=== PATIENT | female | born 1965 | race Two or more races ===

== ENCOUNTER 2016-08-10 11:28 | Emergency (ER) | payer BC ==
[2016-08-10 12:38] VITALS: RESP 18
[2016-08-10] MEDS ORDERED: ACETAMINOPHEN TAB 500 MG TAB PO STA (14:15)
[2016-08-10] MEDS ORDERED: DEXAMETHASONE 4 MG TAB PO STA (14:22)
[2016-08-10] MEDS ORDERED: LORazepam 1 MG TAB PO STA (14:23)
[2016-08-10 14:41] LABS: Basophils % (A) 0 %; CH 33.4; CHCM 33.3; Eosinophils # (A) 0.1 k/uL (0-0.7); Eosinophils % (A) 1 %; HCT 39.9 % (34.0-46.0); HDW 2.09; HGB 13.4 gm/dL (11.4-16.0); Luc # (Auto) 0.09; Luc % (Auto) 1; Lymphocytes # (A) 1.7 k/uL (1.0-4.8); Lymphocytes % (A) 22 %; MCH 33.8 pg (25.0-35.0); MCHC 33.5 g/dL (31.0-37.0); MCV 100.7 fL (80.0-100.0); Macrocytosis Slight; Mean Platelet Volume 7.1; Monocytes # (A) 0.3 k/uL (0-1.0); Monocytes % (A) 4 %; Neutrophils # (A) 5.4 k/uL (1.3-7.7); Neutrophils % (A) 72 %; RBC 3.96 m/uL (3.80-5.40); RDW 14.1 % (11.5-15.5); WBC 7.5 k/uL (3.8-10.6); WBC (Perox) 7.73
[2016-08-10 14:49] LABS: ALT 36 U/L (9-52); AST 28 U/L (14-36); Alkaline Phosphatase 78 U/L (38-126); Anion Gap 10 mmol/L; Blood Urea Nitrogen 19 mg/dL (7-17); Calcium 9.8 mg/dL (8.4-10.2); Carbon Dioxide 27 mmol/L (22-30); Chloride 106 mmol/L (98-107); Glucose 95 mg/dL (74-99); Non-African American GFR(MDRD) >60 (>60 ml/min/1.73 sqM); Potassium 4.2 mmol/L (3.5-5.1); Sodium 143 mmol/L (137-145); Total Bilirubin 0.5 mg/dL (0.2-1.3); Total Protein 7.3 g/dL (6.3-8.2)
--- NOTE | 2016-08-10 15:05 | CT ---
EXAMINATION TYPE: CT brain wo con DATE OF EXAM: 08/10/2016 2:58 PM COMPARISON: Previous study dated 12/09/2013. HISTORY: Dizziness and Headache. CT DLP: 1054.2 mGycm Automated exposure control for dose reduction was used. FINDINGS: Central structures are midline. There is no evidence of hydrocephalus. No acute focal lesion, mass ef fect or midline shift is seen. I do not see evidence of intracranial blood. Visualized portions of the paranasal sinuses and mastoids are clear. No depressed skull fracture is s een. IMPRESSION: NORMAL CT SCAN OF THE BRAIN.
--- NOTE | 2016-08-10 15:09 | CT ---
EXAMINATION TYPE: CT sinus wo con DATE OF EXAM: 08/10/2016 2:58 PM COMPARISON: 08/30/2011 HISTORY: 51-year-old female with dizziness and Headache. CT DLP: 1054.2 mGycm Automated exposure control for dose reduction was used. TECHNIQUE: Noncontrast axial views of the paranasal sinuses were obtained. Coronal reconstructions pe rformed. FINDINGS: Scattered mild mucosal thickening left ethmoid air cells and floor of the left maxillary sinus. Remainder of the paranasal sinuses are well pneumatized. There is no air-fluid level. Reactive keisha- osteogenesis is not seen. There is no destruction of the osseous quick of the paranasal sinuses. The osteomeatal complexes are patent. Leftward nasal septal deviation. Brain is reported separately. Mastoid air cells and middle ear cavities are well pneumatized. Reformatted images confirm above findings. IMPRESSION: Mild chronic left ethmoid and left maxillary sinus disease and leftward nasal septal deviation.
--- NOTE | 2016-08-10 15:52 | ED ---
Headache HPI - General Chief Complaint: Headache Stated Complaint: POSS VERTIGO Time Seen by Provider: 08/10/16 14:05 Mode of arrival: ambulatory Limitations: no limitations - History of Present Illness Initial Comments: 51 years old female presents with a headache ongoing for the last 3 days, she has a few comorbidities and some risk factors she has some history of prior TMs TMJ for which she had a surgery and she has a chronic disc disease for which she had surgery and same time she is concerned she has a pain in the jaw she is requesting us to check her for heart disease. She been feeling dizzy for the last 3 days seen her family doctor and was started on some antibiotics that hasn 't helped she feels her head is heavy and she feels pressure denies any blurred vision any slurred speech denies any symptoms of TIA or CVA denies any neck stiffness she had a cervical spine surgery review of system is unremarkable otherwise - Related Data Home Medications Medication Instructions Recorded Confirmed clonazePAM [Clonazepam] 0.5 mg PO DAILY PRN 06/08/14 08/10/16 Cyanocobalamin [Vitamin B-12 1,000 mcg SQ QMONTH 06/13/14 08/10/16 Injection] Amoxicillin 500 mg PO DAILY 08/10/16 08/10/16 Atenolol [Tenormin] 25 mg PO DAILY 08/10/16 08/10/16 Cyclobenzaprine [Flexeril] 10 mg PO DAILY PRN 08/10/16 08/10/16 traMADol-ACETAMINOP 37.5-325MG 1 tab PO BID PRN 08/10/16 08/10/16 [Ultracet] Previous Rx's Medication Instructions Recorded Clarithromycin [Biaxin] 500 mg PO Q12HR #20 tablet 08/10/16 predniSONE 50 mg PO DAILY #5 tab 08/10/16 Allergies Allergy/AdvReac Type Severity Reaction Status Date / Time naproxen [From Naprosyn] Allergy Dyspnea Verified 08/10/16 14:46 Iodinated Contrast Media - AdvReac Headache Verified 08/10/16 14:46 Oral and and [Iodinated Contrast Media - Stomach IV Dye] Ache Review of Systems ROS Statement: Those systems with pertinent positive or pertinent negative responses have been documented in the HPI. ROS Other: All systems not noted in ROS Statement are negative. 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, LOW VIT B LEVELS, MIGRIANES, DIVERTICULITIS History of Any Multi-Drug Resistant Organisms: None Reported Past Surgical History: Back Surgery Additional Past Surgical History / Comment(s): Jaw surgery 5-2013, EYE SURGERY, MARKERS LEFT IN BREAST-MAMMOGRAMS SO FAR NEG Past Anesthesia/Blood Transfusion Reactions: No Reported Reaction Past Psychological History: Anxiety, Depression Additional Psychological History / Comment(s): PT IS A VERY PLEASANT 49 YEAR OLD THAT LIVES IN OWN HOME WITH . SHE CURRENTLY WORKD AT [employer]. PT HAS HAD TMD, DDD IN NECK THAT SHE RECEIVES INJECTIONS AT NEUROLOGIST OFFICE. Smoking Status: Current every day smoker Past Alcohol Use History: Occasional Additional Past Alcohol Use History / Comment(s): KSTARTED SMOKING AT AGE 13- SMOKES 1PPD , SMOKING CESSATION BOOKLET GIVEN TO PT.PT STATED DOES'NT DRINK MORE THAN 7 DRINKS PER WEEK. Past Drug Use History: None Reported - Past Family History Father Additional Family Medical History / Comment(s): CHIRROSIS OF THE LIVER- FROM COMPLICATIONS. Mother Family Medical History: Cancer, Diabetes Mellitus Additional Family Medical History / Comment(s): MOM IS 78 HAS HAD BREAST CA General Exam - General Exam Comments Initial Comments: General: The patient is awake and alert, in no distress, she is quite anxious Skin: Skin is warm and dry and no rashes or lesions are noted. NO Tenderness over the temporal areas both sides Eye: Pupils are equal, round and reactive to light, extra-ocular movements are intact; there is normal conjunctiva bilaterally. Ears, nose, mouth and throat: There are over the right maxillary area Neck: The neck is supple, there is no tenderness , no signs of meningitis Cardiovascular: There is a regular rate and rhythm. No murmur, rub or gallop is appreciated. Respiratory: To auscultation bilateral, no wheezing no rhonchi no distress respiratory rodriguez noticed Gastrointestinal: Soft, non-distended, non-tender abdomen without masses or organomegaly noted. There is no rebound or guarding present. Bowel sounds are unremarkable. Back: There is no tenderness to palpation in the midline. There is no obvious deformity. Musculoskeletal: Normal ROM, no tenderness, There is no pedal edema. There is no calf tenderness or swelling. No cords were appreciated. Neurological: CN II-XII intact, Cranial nerves III through XII are intact. There are no obvious motor or sensory deficits. Coordination appears grossly intact. Speech is normal. Psychiatric: Cooperative, appropriate mood & affect, normal judgment. Limitations: no limitations Course Vital Signs 08/10/16 08/10/16 12:34 15:35 Temperature 97.4 F L Pulse Rate 67 57 L Respiratory 18 18 Rate Blood Pressure 181/85 136/63 O2 Sat by Pulse 98 99 Oximetry EKG is a sinus bradycardia heart rate is 54 OR interval is 1 H2 QRS duration is 88 QT/QTc is 334/411 review of this EKG reveal T-wave inversion in lead [address] elevation or ST depression noticed in the other leads - Reevaluation(s) Reevaluation #1: 08/10/16 15:57 Is was reassessed at [place] [address], head CT is normal sinus CT sinuses is positive as suspected EKG is unremarkable CBC troponin and head CT are within normal range these findings were explained to the patient she is feeling better she will be gone home on Biaxin 500 mg twice daily for 10 days and now prednisone 40 mg once daily for next 5 days education and casting was done about the disadvantages of tobacco use Medical Decision Making - Lab Data Result diagrams: 08/10/16 14:30 08/10/16 14:30 Lab Results 08/10/16 08/10/16 08/10/16 Range/Units 14:30 14:30 14:30 WBC 7.5 (3.8-10.6) k/uL RBC 3.96 (3.80-5.40) m/uL Hgb 13.4 (11.4-16.0) gm/dL Hct 39.9 (34.0-46.0) % MCV 100.7 H (80.0-100.0) fL MCH 33.8 (25.0-35.0) pg MCHC 33.5 (31.0-37.0) g/dL RDW 14.1 (11.5-15.5) % Plt Count 297 (150-450) k/uL Neutrophils % 72 % Lymphocytes % 22 % Monocytes % 4 % Eosinophils % 1 % Basophils % 0 % Neutrophils # 5.4 (1.3-7.7) k/uL Lymphocytes # 1.7 (1.0-4.8) k/uL Monocytes # 0.3 (0-1.0) k/uL Eosinophils # 0.1 (0-0.7) k/uL Basophils # 0.0 (0-0.2) k/uL Macrocytosis Slight Sodium 143 (137-145) mmol/L Potassium 4.2 (3.5-5.1) mmol/L Chloride 106 (98-107) mmol/L Carbon Dioxide 27 (22-30) mmol/L Anion Gap 10 mmol/L BUN 19 H (7-17) mg/dL Creatinine 0.60 (0.52-1.04) mg/dL Est GFR (MDRD) Af Amer >60 (>60 ml/min/1.73 sqM) Est GFR (MDRD) Non-Af >60 (>60 ml/min/1.73 sqM) Glucose 95 (74-99) mg/dL Calcium 9.8 (8.4-10.2) mg/dL Total Bilirubin 0.5 (0.2-1.3) mg/dL AST 28 (14-36) U/L ALT 36 (9-52) U/L Alkaline Phosphatase 78 (38-126) U/L Troponin I <0.012 (0.000-0.034) ng/mL Total Protein 7.3 (6.3-8.2) g/dL Albumin 4.5 (3.5-5.0) g/dL Disposition Clinical Impression: Headache, Sinusitis Disposition: HOME SELF-CARE Condition: Good Instructions: Acute Headache (ED) Prescriptions: Clarithromycin [Biaxin] 500 mg PO Q12HR #20 tablet predniSONE 50 mg PO DAILY #5 tab Referrals: Aide Hahn MD [Primary Care Provider] - 1-2 days
[2016-08-10 16:37] VITALS: BP 148/74; PULSE 67; TEMP 98.2
== END 2016-08-10 16:36 | disposition home or self-care (01) ==
LOC: EC 11:28
DX: J32.8 Other chronic sinusitis (principal); E53.8 Deficiency of other specified B group vitamins; F17.200 Nicotine dependence, unspecified, uncomplicated; Z88.6 Allergy status to analgesic agent; Z91.041 Radiographic dye allergy status; Z79.899 Other long term (current) drug therapy
CPT/HCPCS: 99284 ×2; 36415; 93005; 80053; 84484; 85025; 70450; 70486; J8540

== ENCOUNTER → 2016-11-15 | Outpatient (CLI) | payer BC ==
--- NOTE | 2016-11-16 11:11 | MR ---
MR left elbow HISTORY: Left elbow pain Multiplanar multisequence imaging through the left elbow No comparisons There is abnormal increased signal at the level of the common extensor tendon origin, fluid signal is noted, local edema change is present within the peritendinous region, subcutaneous fat. Findings are compatible with partial tear and tendinosis. Small amount of joint effusion is present. Areas of irr egular appearance at the dorsal cortex of the capitellum with some articular cartilage loss compatibl e with osteoarthritis. Triceps tendon, biceps tendon are intact. Bone marrow signal is maintained. IMPRESSION: Lateral epicondylitis with partial tear of the common extensor tendon. Osteoarthritis.
== END | disposition home or self-care (01) ==
LOC: RADMRIMAIN 16:51
PROVIDERS: ATTEND Internal Medicine
DX: M19.022 Primary osteoarthritis, left elbow (principal); S56.512A Strain of other extensor muscle, fascia and tendon at forearm level, left arm, initial encounter; M77.12 Lateral epicondylitis, left elbow

== ENCOUNTER → 2017-11-29 | Outpatient (CLI) | payer BC ==
--- NOTE | 2017-11-29 23:23 | MR ---
EXAMINATION TYPE: MR hip RT wo con DATE OF EXAM: 11/29/2017 COMPARISON: None HISTORY: Right hip pain with Limited ROM X2 Months Standard multiplanar, multisequence MRI departmental protocol Multiplanar, multisequence images of the right hip were acquired. FINDINGS: The proximal femurs and hip joints appear intact. There is no sign of hip dysplasia. I see no sign of avascular necrosis. There is no sign of any significant hip joint effusion. There is no ev idence of a pelvic mass. The acetabulum appears intact. There is no evidence of a soft tissue mass. IMPRESSION: Negative MR scan of the right hip.
== END | disposition home or self-care (01) ==
LOC: RADMRIMAIN 14:07
PROVIDERS: ATTEND Internal Medicine
DX: M25.551 Pain in right hip (principal)

== ENCOUNTER → 2018-01-02 | Outpatient (CLI) | payer BC ==
--- NOTE | 2018-01-02 16:49 | XR ---
EXAMINATION TYPE: XR pelvis AP view DATE OF EXAM: 01/02/2018 COMPARISON: Correlation MRI right hip 11/29/2017 HISTORY: 52-year-old female with right hip pain for 5 months TECHNIQUE: AP view FINDINGS: There is mild axial joint space narrowing in both hips with mild marginal spurring at the s uperior acetabular margins. No acute fracture, subluxation, or dislocation. SI joints and pubic symph ysis appear intact. IMPRESSION: Mild degenerative change in both hips. No acute osseous abnormality seen.
== END | disposition home or self-care (01) ==
LOC: RADXRMAIN 14:33
PROVIDERS: ATTEND Internal Medicine
DX: M16.0 Bilateral primary osteoarthritis of hip (principal)
CPT/HCPCS: 72170

== ENCOUNTER → 2019-02-19 | Outpatient (CLI) | payer BC ==
--- NOTE | 2019-02-19 14:53 | XR ---
EXAMINATION TYPE: XR cervical spine comp DATE OF EXAM: 02/19/2019 COMPARISON: None HISTORY: Neck pain TECHNIQUE: 5 views cervical spine FINDINGS: There is an anterior cervical fusion C5-6 and 7. Disc spacers are present. Prevertebral spa ce is normal. Remaining disc height are preserved. Vertebral body heights are preserved. Posterior sp inal lamellar line is intact. Foramen are patent. IMPRESSION: 1. Normal post anterior cervical fusion cervical spine
== END ==
LOC: RADXRMAIN 14:26
PROVIDERS: ATTEND Internal Medicine
DX: G89.29 Other chronic pain (principal); M54.2 Cervicalgia; Z98.1 Arthrodesis status
CPT/HCPCS: 72050

== ENCOUNTER → 2019-03-12 | Outpatient (CLI) | payer BC ==
--- NOTE | 2019-03-12 13:33 | MR ---
EXAMINATION TYPE: MR cervical spine wo/w con DATE OF EXAM: 03/12/2019 COMPARISON: MRI dated 12/19/2013 HISTORY: Arthrodesis status TECHNIQUE: Multiplanar, multisequence images of the cervical spine were acquired utilizing 6 mL intravenous Gada vist gadolinium contrast. Diffusion weighted imaging was performed. FINDINGS: There is anterior cervical fusion of C5 through the superior aspect of T1. Multilevel dis c desiccation is seen. Spinal cord signal remains slightly heterogenous C4-C6 unchanged from 2014. Ve rtebral bodies maintain normal vertebral body heights and alignment. C2-C3: There is a left eccentric disc bulge that is broad-based. No spinal canal stenosis nor neural foraminal narrowing. C3-C4: Broad-based disc bulge is seen as well as mild uncovertebral hypertrophy without spinal canal stenosis nor neural foraminal narrowing. C4-C5: There is a small central disc herniation and broad-based disc bulge creating mild spinal canal stenosis. Uncovertebral hypertrophy and facet arthropathy creating moderate right neural foraminal n arrowing and mild left neural foraminal narrowing. C5-C6: Posterior projecting left paracentral osteophyte is seen. Post surgical changes of an anterior cervical fusion. No significant foraminal stenosis nor neural foraminal narrowing. C6-C7: Left paracentral posterior projecting osteophyte is seen. Uncovertebral hypertrophy is present bilaterally mildly narrowing the neuroforamen. No spinal canal stenosis. C7-T1: Right paracentral osteophyte is seen posteriorly. Uncovertebral hypertrophy mildly narrows the right neural foramen. Spinal canal and left neural foramen are patent. No abnormal postcontrast enhancement is seen in the cervical spine. IMPRESSION: 1. New central disc herniation at C4-C5, a level above the anterior cervical fusion device that creat es mild spinal canal stenosis. Degenerative change at this level creates moderate right neural forami nal narrowing. 2. Anterior cervical fusion device fixates the lower cervical spine. No new vertebral body height los s or malalignment. Stable slight myelomalacia in comparison to 2013 from C4 through C6. 3. Mild multilevel degenerative disc disease of the remainder the cervical spine as detailed above. 4. No abnormal postcontrast enhancement.
== END | disposition home or self-care (01) ==
LOC: RADMRIMAIN 11:48
PROVIDERS: ATTEND Neurological Surgery
DX: Z47.89 Encounter for other orthopedic aftercare (principal); M48.02 Spinal stenosis, cervical region; M50.221 Other cervical disc displacement at C4-C5 level; M50.30 Other cervical disc degeneration, unspecified cervical region; M47.812 Spondylosis without myelopathy or radiculopathy, cervical region; Z98.1 Arthrodesis status
CPT/HCPCS: 72156; A9585

== ENCOUNTER → 2020-12-19 | Outpatient (CLI) | payer OTHER ==
--- NOTE | 2020-12-19 14:04 | XR ---
EXAMINATION TYPE: XR cervical spine limited DATE OF EXAM: 12/19/2020 TECHNIQUE: Frontal, lateral, and open mouth view of the cervical spine are obtained. HISTORY: Chronic neck pain COMPARISON: Cervical spine x-ray February 19, 2019 FINDINGS: The cervical spine is visualized in its entirety from C1 thru the top of T1 level, stable grade 1 retrolisthesis C4 on C5. The pre-vertebral soft tissue remains within normal limits. The C1 -C2 articulation is within normal limits on the open mouth view. [id number] disc space narrowin g with mild to moderate anterior spurring C4-C5 level shows interval degenerative progression from study. Anterior fusion plate with artificial disc material C5-C7 levels redemonstrated and unchang ed in appearance and alignment. Slightly suboptimal evaluation of C7-T1 disc space without dedicated swimmer's view. Overlying soft tissue is unremarkable. IMPRESSION: As above.
== END | disposition home or self-care (01) ==
LOC: RADXRMAIN 11:53
PROVIDERS: ATTEND Internal Medicine
DX: M48.02 Spinal stenosis, cervical region (principal); M50.321 Other cervical disc degeneration at C4-C5 level; M43.12 Spondylolisthesis, cervical region
CPT/HCPCS: 72040

== ENCOUNTER 2024-03-24 12:55 | Emergency (ER) | payer MEDICARE ==
--- NOTE | 2024-03-24 13:20 | ED ---
General Adult HPI - General Chief complaint: Abdominal Pain Stated complaint: Abd pain, possible diverticulitis Time Seen by Provider: 03/24/24 13:10 Source: patient, RN notes reviewed, old records reviewed Mode of arrival: ambulatory Limitations: no limitations - History of Present Illness Initial comments: This is a 59-year-old female who presents to the emergency department complaining of lower abdominal pain. Patient states it feels like when she had diverticulitis years ago. Patient states this started about 1 week ago and has gotten progressively worse. Patient states she does not want to eat or drink because it seems to increase the pain. Patient states last couple of days she has been constipated. Patient denies any vomiting. Patient has any fever chills. Patient has any back pain. Patient denies any dysuria hematuria urinary frequency. Patient states she also is having a migraine since she has been having abdominal pain. This headache is no different than her normal migraine headache - Related Data Home Medications Medication Instructions Recorded Confirmed clonazePAM 0.5 mg PO DAILY PRN 06/08/14 08/10/16 Cyanocobalamin [Vitamin B-12 1,000 mcg SQ QMONTH 06/13/14 08/10/16 Injection] Amoxicillin 500 mg PO DAILY 08/10/16 08/10/16 Cyclobenzaprine [Flexeril] 10 mg PO DAILY PRN 08/10/16 08/10/16 atenoloL [Tenormin] 25 mg PO DAILY 08/10/16 08/10/16 traMADol-ACETAMINOP 37.5-325MG 1 tab PO BID PRN 08/10/16 08/10/16 [Ultracet] Previous Rx's Medication Instructions Recorded Clarithromycin [Biaxin] 500 mg PO Q12HR #20 tablet 08/10/16 predniSONE 50 mg PO DAILY #5 tab 08/10/16 Allergies Allergy/AdvReac Type Severity Reaction Status Date / Time naproxen [From Naprosyn] Allergy Dyspnea Verified 08/10/16 14:46 Iodinated Contrast Media AdvReac Headache Verified 08/10/16 14:46 [Iodinated Contrast Media - and IV Dye] Stomach Ache Review of Systems ROS Statement: Those systems with pertinent positive or pertinent negative responses have been documented in the HPI. ROS Other: All systems not noted in ROS Statement are negative. 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, LOW VIT B LEVELS, MIGRIANES, DIVERTICULITIS History of Any Multi-Drug Resistant Organisms: None Reported Past Surgical History: Back Surgery Additional Past Surgical History / Comment(s): Jaw surgery , EYE SURGERY, MARKERS LEFT IN BREAST-MAMMOGRAMS SO FAR NEG, lumbar discectomy, tinitis, neuropathy Past Anesthesia/Blood Transfusion Reactions: No Reported Reaction Past Psychological History: Anxiety, Depression Smoking Status: Current every day smoker Past Alcohol Use History: Occasional Past Drug Use History: None Reported - Past Family History Father Additional Family Medical History / Comment(s): CHIRROSIS OF THE LIVER- FROM COMPLICATIONS. Mother Family Medical History: Cancer, Diabetes Mellitus Additional Family Medical History / Comment(s): MOM IS 78 HAS HAD BREAST CA General Exam - General Exam Comments Initial Comments: GENERAL: Patient is well-developed and well-nourished. Patient is nontoxic and well- hydrated and is in mild distress. ENT: Neck is soft and supple. No significant lymphadenopathy is noted. Oropharynx i s clear. Moist mucous membranes. Neck has full range of motion without eliciting any pain. EYES: The sclera were anicteric and conjunctiva were pink and moist. Extraocular movements were intact and pupils were equal round and reactive to light. Eyelids were unremarkable. PULMONARY: Unlabored respirations. Good breath sounds bilaterally. No audible rales rhonchi or wheezing was noted. CARDIOVASCULAR: There is a regular rate and rhythm without any murmurs gallops or rubs. ABDOMEN: Patient has lower abdominal tenderness in the suprapubic and left lower quadrant area SKIN: Skin is clear with no lesions or rashes and otherwise unremarkable. NEUROLOGIC: Patient is alert and oriented x3. Cranial nerves II through XII are grossly intact. Motor and sensory are also intact. Normal speech, volume and content. Symmetrical smile. MUSCULOSKELETAL: Normal extremities with adequate strength and full range of motion. No lower extremity swelling or edema. No calf tenderness. LYMPHATICS: No significant lymphadenopathy is noted PSYCHIATRIC: Normal psychiatric evaluation. N Limitations: no limitations Course Vital Signs 03/24/24 03/24/24 03/24/24 12:59 14:27 14:50 Temperature 99.4 F Pulse Rate 87 Respiratory 18 Rate Blood Pressure 172/127 186/88 166/84 O2 Sat by Pulse 97 Oximetry 11/16/24 14:53 Temperature 99.0 F Pulse Rate 77 Respiratory 16 Rate Blood Pressure O2 Sat by Pulse 98 Oximetry Medical Decision Making - Medical Decision Making Was pt. sent in by a medical professional or institution (DELIA Yoder, [employer], urgent care, hospital, or residential...) When possible be specific @ -No Did you speak to anyone other than the patient for history (EMS, parent, family, police, friend...)? What history was obtained from this source @ -No Did you review nursing and triage notes (agree or disagree)? Why? @ -I reviewed and agree with nursing and triage notes Were old charts reviewed (outside hosp., previous admission, EMS record, old EKG, old radiological studies, urgent care reports/EKG's, residential records)? Report findings @ -No old charts were reviewed Differential Diagnosis? @ -Differential Abdominal Pain Women: Appendicitis, Cholecystitis, diverticulosis, ischemic bowel, pancreatitis, hepatitis, UTI, gastroenteritis, AAA, incarcerated hernia, bowel obstruction, constipation, inflammatory bowel, hepatitis, peptic ulcer disease, splenic infarction, perforated viscus, vulvitis, ovarian torsion, PID, kidney stone, placenta abruption, this is not meant to be an all-inclusive list EKG interpreted by me (3pts min.). @ -As above X-rays interpreted by me (1pt min.). @ -None done CT interpreted by me (1pt min.). @ -CT scan of the abdomen shows no diverticulitis or any inflammatory changes U/S interpreted by me (1pt. min.). @ -None done What testing was considered but not performed or refused? (CT, X-rays, U/S, labs)? Why? @ -None What meds were considered but not given or refused? Why? @ -None Did you discuss the management of the patient with other professionals (prof essionals i.e. DELIA Yoder, [employer], lab, RT, psych nurse, social media designer, ccna, teacher, security public safety officer, major case detective)? Give summary @ -No Was smoking cessation discussed for >3mins.? @ -No Was critical care preformed (if so, how long)? @ -No Were there social determinants of health that impacted care today? How? (Homelessness, low income, unemployed, alcoholism, drug addiction, transportation, low edu. Level, literacy, decrease access to med. care, nursing home, rehab)? @ -No Was there de-escalation of care discussed even if they declined (Discuss DNR or withdrawal of care, Hospice)? DNR status @ -No What co-morbidities impacted this encounter? (DM, HTN, Smoking, COPD, CAD, Cancer, CVA, ARF, Chemo, Hep., AIDS, mental health diagnosis, sleep apnea, morbid obesity)? @ -None Was patient admitted / discharged? Hospital course, mention meds given and route, prescriptions, significant lab abnormalities, going to OR and other pertinent info. @ -Patient received pain medications and was feeling better. Patient's CAT scan was normal lab work was normal and patient's headache was much improved with Excedrin. Patient also to get 0.5 Dilaudid for abdominal discomfort. Patient will follow-up with her primary medical care doctor. Undiagnosed new problem with uncertain prognosis? @ -No Drug Therapy requiring intensive monitoring for toxicity (Heparin, Nitro, Insulin, Cardizem)? @ -No Were any procedures done? @ -No Diagnosis/symptom? @ -Abdominal pain Acute, or Chronic, or Acute on Chronic? @ -Acute Uncomplicated (without systemic symptoms) or Complicated (systemic symptoms)? @ -Complicated Side effects of treatment? @ -No Exacerbation, Progression, or Severe Exacerbation? @ -No Poses a threat to life or bodily function? How? (Chest pain, [place], [place], pneumonia, PE, COPD, DKA, ARF, appy, cholecystitis, CVA, Diverticulitis, Homicidal, Suicidal, threat to staff... and all critical care pts) @ -No - Lab Data Result diagrams: 03/24/24 13:29 03/24/24 13:29 Lab Results 03/24/24 03/24/24 03/24/24 Range/Units 13:29 13:29 13:29 WBC 9.2 (3.8-10.6) k/uL RBC 4.41 (3.80-5.40) m/uL Hgb 14.5 (11.4-16.0) gm/dL Hct 44.2 (34.0-46.0) % MCV 100.2 H (80.0-100.0) fL MCH 33.0 (25.0-35.0) pg MCHC 32.9 (31.0-37.0) g/dL RDW 12.9 (11.5-15.5) % Plt Count 438 (150-450) k/uL MPV 7.2 Neutrophils % 68 % Lymphocytes % 21 % Monocytes % 8 % Eosinophils % 1 % Basophils % 0 % Neutrophils # 6.3 (1.3-7.7) k/uL Lymphocytes # 2.0 (1.0-4.8) k/uL Monocytes # 0.7 (0-1.0) k/uL Eosinophils # 0.1 (0-0.7) k/uL Basophils # 0.0 (0-0.2) k/uL Sodium 139 (137-145) mmol/L Potassium 4.6 (3.5-5.1) mmol/L Chloride 105 (98-107) mmol/L Carbon Dioxide 31 H (22-30) mmol/L Anion Gap 3 mmol/L BUN 23 H (7-17) mg/dL Creatinine 0.84 (0.52-1.04) mg/dL Est GFR (CKD-EPI)AfAm 87 (>60 ml/min/1.73 sqM) Est GFR (CKD-EPI)NonAf 75 (>60 ml/min/1.73 sqM) Glucose 113 H (74-99) mg/dL Plasma Lactic Acid [place] (0.7-2.0) mmol/L Calcium 10.1 (8.4-10.2) mg/dL Total Bilirubin 0.4 (0.2-1.3) mg/dL AST 25 (14-36) U/L ALT 22 (4-34) U/L Alkaline Phosphatase 96 (38-126) U/L Total Protein 7.8 (6.3-8.2) g/dL Albumin 4.7 (3.5-5.0) g/dL Amylase 56 (30-110) U/L Lipase 109 (23-300) U/L Urine Color Yellow Urine Appearance Clear (Clear) Urine pH 6.0 (5.0-8.0) Ur Specific [place] 1.024 (1.001-1.035) Urine Protein Trace H (Negative) Urine Glucose (UA) Negative (Negative) Urine Ketones Negative (Negative) Urine Blood Negative (Negative) Urine Nitrite Negative (Negative) Urine Bilirubin Negative (Negative) Urine Urobilinogen 3.0 (<2.0) mg/dL Ur Leukocyte Esterase Negative (Negative) 03/24/24 Range/Units 13:29 WBC (3.8-10.6) k/uL RBC (3.80-5.40) m/uL Hgb (11.4-16.0) gm/dL Hct (34.0-46.0) % MCV (80.0-100.0) fL MCH (25.0-35.0) pg MCHC (31.0-37.0) g/dL RDW (11.5-15.5) % Plt Count (150-450) k/uL MPV Neutrophils % % Lymphocytes % % Monocytes % % Eosinophils % % Basophils % % Neutrophils # (1.3-7.7) k/uL Lymphocytes # (1.0-4.8) k/uL Monocytes # (0-1.0) k/uL Eosinophils # (0-0.7) k/uL Basophils # (0-0.2) k/uL Sodium (137-145) mmol/L Potassium (3.5-5.1) mmol/L Chloride (98-107) mmol/L Carbon Dioxide (22-30) mmol/L Anion Gap mmol/L BUN (7-17) mg/dL Creatinine (0.52-1.04) mg/dL Est GFR (CKD-EPI)AfAm (>60 ml/min/1.73 sqM) Est GFR (CKD-EPI)NonAf (>60 ml/min/1.73 sqM) Glucose (74-99) mg/dL Plasma Lactic Acid [place] 1.1 (0.7-2.0) mmol/L Calcium (8.4-10.2) mg/dL Total Bilirubin (0.2-1.3) mg/dL AST (14-36) U/L ALT (4-34) U/L Alkaline Phosphatase (38-126) U/L Total Protein (6.3-8.2) g/dL Albumin (3.5-5.0) g/dL Amylase (30-110) U/L Lipase (23-300) U/L Urine Color Urine Appearance (Clear) Urine pH (5.0-8.0) Ur Specific [place] (1.001-1.035) Urine Protein (Negative) Urine Glucose (UA) (Negative) Urine Ketones (Negative) Urine Blood (Negative) Urine Nitrite (Negative) Urine Bilirubin (Negative) Urine Urobilinogen (<2.0) mg/dL Ur Leukocyte Esterase (Negative) Disposition Clinical Impression: Abdominal pain Disposition: HOME SELF-CARE Instructions (If sedation given, give patient instructions): Abdominal Pain (ED) Is patient prescribed a controlled substance at d/c from ED?: No Referrals: Fred White DO [Primary Care Provider] - 1-2 days Time of Disposition: 14:56
[2024-03-24] MEDS: SODIUM CHLORIDE 0.9% 1,000 ML IV ONE (13:52)
[2024-03-24 14:00] LABS: Appearance,Urine Clear (Clear); Bilirubin,Urine Negative (Negative); Blood,Urine Negative (Negative); Color,Urine Yellow; Glucose,Urine (UA) Negative (Negative); Ketones,Urine Negative (Negative); Leukocyte Esterase,Urine Negative (Negative); Nitrite,Urine Negative (Negative); Protein,Urine Trace (Negative); Specific Gravity,Urine 1.024 (1.001-1.035)
[2024-03-24 14:02] LABS: Basophils % (A) 0 %; Eosinophils # (A) 0.1 k/uL (0-0.7); Eosinophils % (A) 1 %; HCT 44.2 % (34.0-46.0); HGB 14.5 gm/dL (11.4-16.0); Lymphocytes % (A) 21 %; MCHC 32.9 g/dL (31.0-37.0); MCV 100.2 fL (80.0-100.0); Mean Platelet Volume 7.2; Monocytes # (A) 0.7 k/uL (0-1.0); Monocytes % (A) 8 %; Neutrophils # (A) 6.3 k/uL (1.3-7.7); Neutrophils % (A) 68 %; Platelet Count 438 k/uL (150-450); RBC 4.41 m/uL (3.80-5.40); RDW 12.9 % (11.5-15.5); WBC 9.2 k/uL (3.8-10.6)
--- NOTE | 2024-03-24 14:02 | CT ---
EXAMINATION TYPE: CT abdomen pelvis wo con DATE OF EXAM: 03/24/2024 1:52 PM COMPARISON: None. CLINICAL INDICATION: Female, 59 years old with history of Left lower quadrant abdominal pain, LOWER A BDOMINAL PAIN H/O DIVERTICULITIS TECHNIQUE: Axial images were obtained from above the diaphragm to the pubic rami in the axial plane a t 5 mm thick sections. Reconstructed images are reviewed on the computer in the coronal plane. CONTRAST: mL of . Study performed without Oral Contrast DLP: 437.1 mGycm, Automated exposure control for dose reduction was used. FINDINGS: Limited CT sections are obtained the lung bases. Minimal compressive atelectasis within the dependen t lung bases.. CT ABDOMEN: Liver: Normal Spleen: Normal Pancreas: Normal Adrenal glands: The adrenal glands are normal. Gallbladder: Normal Kidneys: No masses are evident. No hydronephrosis is present. No cysts are present. No renal stone s evident Aorta: Vascular calcification is within the aorta. Inferior vena cava: Normal. CT PELVIS: Loops of bowel within the abdomen and pelvis are normal. A few diverticular changes are within the si gmoid colon. No suspicious inflammatory changes are adjacent. No abscess formation 3 years. There are loops of bowel which are incompletely distended or lack oral contrast limiting their evaluation. Appendix: Normal as visualized. Urinary bladder: Decompressed and cannot be evaluated. Genitourinary structures: Uterus is normal. Adnexa are normal. Osseous structures: No suspicious lytic or sclerotic lesions. IMPRESSION: 1. Diverticulosis without acute diverticulitis. [facility], , 03/24/2024 2:00 PM
[2024-03-24 14:14] LABS: ALT 22 U/L (4-34); AST 25 U/L (14-36); African American GFR (CKD) 87 (>60 ml/min/1.73 sqM); Albumin 4.7 g/dL (3.5-5.0); Alkaline Phosphatase 96 U/L (38-126); Amylase 56 U/L (30-110); Anion Gap 3 mmol/L; Blood Urea Nitrogen 23 mg/dL (7-17); Calcium 10.1 mg/dL (8.4-10.2); Carbon Dioxide 31 mmol/L (22-30); Chloride 105 mmol/L (98-107); Glucose 113 mg/dL (74-99); Lipase 109 U/L (23-300); Non-African American GFR(CKD) 75 (>60 ml/min/1.73 sqM); Potassium 4.6 mmol/L (3.5-5.1); Sodium 139 mmol/L (137-145); Total Bilirubin 0.4 mg/dL (0.2-1.3); Total Protein 7.8 g/dL (6.3-8.2)
[2024-03-24] MEDS: ASPIRIN-ACET-CAFF 250-250-65MG 1 EACH TAB PO STA (14:23)
[2024-03-24] MEDS: HYDROmorphone 0.5 MG/0.5 ML SYRINGE IVP STA (14:38)
[2024-03-24] MEDS: hydrALAZINE HCL 20 MG/ML 1 ML VIAL IVP STA (14:38)
[2024-03-24 14:51] VITALS: BP 166/84
[2024-03-24 14:53] VITALS: PULSE 77; RESP 16; TEMP 99
== END 2024-03-24 15:20 | disposition home or self-care (01) ==
LOC: EC 12:55
DX: R10.9 Unspecified abdominal pain (principal); F17.200 Nicotine dependence, unspecified, uncomplicated; Z91.041 Radiographic dye allergy status; Z88.8 Allergy status to other drugs, medicaments and biological substances; Z88.6 Allergy status to analgesic agent
CPT/HCPCS: 36415; 80053; 82150; 83605; 83690; 85025; 81003; 74176; 99284; 96374; J0360; J1171

== ENCOUNTER → 2024-08-08 | Outpatient (CLI) | payer MEDICARE ==
[2024-08-14 16:36] LABS: Metanephrine, Free 59 pg/mL (< OR = 57); Normetanephrine, Free 167 pg/mL (< OR = 148); Total, Free (MN + NMN) 226 pg/mL (< OR = 205)
== END | disposition home or self-care (01) ==
LOC: LABWHC1 11:16
PROVIDERS: ATTEND Internal Medicine Cardiovascular Disease
DX: I10 Essential (primary) hypertension (principal)
CPT/HCPCS: 36415; 82088; 82533; 83835; 84244; 84443